=== PATIENT | male | born 2000 | race Caucasian/White ===

== ENCOUNTER 2023-06-23 06:24 | Observation (INO) | payer BC, OTHER ==
[2023-06-23 06:37] VITALS: BMI 18.6
[2023-06-23] MEDS ORDERED: ONDANSETRON 4 MG/2 ML VIAL ONE (06:46)
[2023-06-23] MEDS: LACTATED RINGERS SOLUTION 1000 ML INFUS.BAG IV ONE ×3 (06:48→11:22)
[2023-06-23] MEDS: ONDANSETRON 4 MG/2 ML VIAL IVPB ONE (06:52)
[2023-06-23] MEDS: ONDANSETRON 4 MG/2 ML VIAL IVPUSH ONE (06:52)
[2023-06-23 07:13] LABS: BASO % 0.4 % (0-2.0); HEMATOCRIT 49.9 % (35.4-49); HEMOGLOBIN 17.4 GM/dL (11.7-16.9); LYMPH % 6.4 % (8-40); MCH 30.6 pg (25.7-33.7); MCHC 34.8 g/dl (32.0-35.9); MEAN CELL VOLUME 88.1 fl (80-96); MEAN PLT VOLUME 9.6 fl (7.5-11.1); MONO % 9.8 % (3.8-10.2); NEUT % 83.4 % (42.8-82.8); PLATELET COUNT 343 10^3/uL (134-434); RBC 5.66 M/mm3 (4.00-5.60); RDW 13.8 % (11.9-15.9); WHITE BLOOD COUNT 14.9 K/mm3 (4.0-10.0)
[2023-06-23 09:43] LABS: BASO % 0.2 % (0-2.0); HEMATOCRIT 43.2 % (35.4-49); HEMOGLOBIN 14.9 GM/dL (11.7-16.9); MCH 30.5 pg (25.7-33.7); MCHC 34.6 g/dl (32.0-35.9); MEAN CELL VOLUME 88.3 fl (80-96); MEAN PLT VOLUME 8.9 fl (7.5-11.1); MONO % 9.8 % (3.8-10.2); PLATELET COUNT 237 10^3/uL (134-434); RBC 4.89 M/mm3 (4.00-5.60); RDW 13.5 % (11.9-15.9); WHITE BLOOD COUNT 11.7 K/mm3 (4.0-10.0)
[2023-06-23 09:56] LABS: POTASSIUM 4.4 mmol/L (3.5-5.1)
[2023-06-23 09:59] LABS: ALBUMIN 4.4 g/dl (3.4-5.0); BLOOD UREA NITROGEN 27.1 mg/dL (7-18)
[2023-06-23 10:02] LABS: CREATININE 1.2 mg/dL (0.55-1.3)
[2023-06-23 10:03] LABS: TOT PROT 7.5 g/dl (6.4-8.2)
[2023-06-23 10:04] LABS: BILIRUBIN,TOTAL 0.5 mg/dL (0.2-1)
[2023-06-23 10:59] LABS: MAGNESIUM 2.2 mg/dL (1.8-2.4)
[2023-06-23 12:53] LABS: COCAINE, UR NEGATIVE (NEGATIVE); OPIATES, URI NEGATIVE (NEGATIVE); URINE AMPHETAMINES NEGATIVE (NEGATIVE); URINE BARBITURATES NEGATIVE (NEGATIVE)
[2023-06-23 12:54] LABS: METHADONE, UR NEGATIVE (NEGATIVE); URINE BENZODIAZEPINES NEGATIVE (NEGATIVE)
[2023-06-23 12:55] LABS: PHENCYCLIDINE,URINE NEGATIVE (NEGATIVE)
[2023-06-23] MEDS: ONDANSETRON 4 MG/2 ML VIAL IVPUSH PRN (14:34)
[2023-06-23 14:44] LABS: PH,URINE 5.5 (5.0-8.0); URINE BILIRUBIN NEGATIVE (NEGATIVE); URINE COLOR YELLOW; URINE GLUCOSE (UA) NEGATIVE (NEGATIVE); URINE KETONE NEGATIVE (NEGATIVE); URINE LEUK ESTERASE NEGATIVE (NEGATIVE); URINE NITRITE NEGATIVE (NEGATIVE); URINE PROTEIN TRACE (NEGATIVE); URINE UROBILINOGEN 0.2 mg/dL (0.2-1.0)
[2023-06-23 14:57] LABS: URINE APPEARANCE CLEAR
[2023-06-23 15:55] VITALS: RESP 18
[2023-06-23] MEDS: LACTATED RINGERS SOLUTION 1,000 ML/1,000 ML INFUS.BAG IV SCH (16:28)
[2023-06-23] MEDS: ACETAMINOPHEN 325 MG TABLET (FP) PO PRN (20:14)
[2023-06-24 08:22] LABS: BASO % 0.5 % (0-2.0); HEMATOCRIT 36.6 % (35.4-49); HEMOGLOBIN 12.9 GM/dL (11.7-16.9); MCH 31.1 pg (25.7-33.7); MCHC 35.3 g/dl (32.0-35.9); MEAN CELL VOLUME 88.1 fl (80-96); MONO % 8.5 % (3.8-10.2); PLATELET COUNT 158 10^3/uL (134-434); RBC 4.16 M/mm3 (4.00-5.60); RDW 13.2 % (11.9-15.9); WHITE BLOOD COUNT 5.6 K/mm3 (4.0-10.0)
[2023-06-24 08:45] LABS: POTASSIUM 3.4 mmol/L (3.5-5.1)
[2023-06-24 08:51] LABS: BLOOD UREA NITROGEN 13.2 mg/dL (7-18)
[2023-06-24 08:53] LABS: CREATININE 0.8 mg/dL (0.55-1.3)
[2023-06-24 08:54] LABS: BILIRUBIN,TOTAL 0.5 mg/dL (0.2-1)
[2023-06-24 09:30] LABS: ALBUMIN 3.2 g/dl (3.4-5.0); CALCIUM 8.1 mg/dL (8.5-10.1); TOT PROT 5.5 g/dl (6.4-8.2)
[2023-06-24] MEDS ORDERED: SIMETHICONE 80 MG TAB.CHEW (FP) PO PRN (09:45)
[2023-06-24] MEDS ORDERED: MAG HYDROX/AL HYDROX/SIMETH 30 ML UNIT-DOSE CUP PO PRN (09:47)
[2023-06-24] MEDS: POTASSIUM CHLORIDE TABS 20 MEQ TABLET.ER (FP) PO ONE (10:31)
[2023-06-24] MEDS: PANTOPRAZOLE SODIUM 40 MG VIAL IVPUSH SCH (10:35)
[2023-06-24] MEDS: PANTOPRAZOLE 40 MG TABLET PO SCH (10:45)
[2023-06-24 12:43] VITALS: BP 125/61; PULSE 102; TEMP 98.8
== END 2023-06-24 13:46 | disposition home or self-care (01) ==
LOC: JER 06:24 → JERBED 11:37 → J7W 13:37
PROVIDERS: ADMIT Internal Medicine
DX: E86.0 Dehydration (principal); B34.9 Viral infection, unspecified; R00.0 Tachycardia, unspecified; R94.31 Abnormal electrocardiogram [ECG] [EKG]; R11.2 Nausea with vomiting, unspecified; R19.7 Diarrhea, unspecified
CPT/HCPCS: 0241U-QW; 36415; 80053; 80307; 81003; 83690; 83735; 84443; 84484; 85025; 87086; 93005; 93010; 99285-25; G0378